=== PATIENT | male | born 1945 | race Caucasian/White ===

== ENCOUNTER 2016-07-02 08:19 | Outpatient (CLI) | payer MEDICARE ==
[2016-07-01 17:40] LABS: HEMATOCRIT 26.8 % (37.9-51.0); HGB HCT DIFFERENCE -2.8; MEAN CORPUSCULAR HEMOGLOBIN 22.3 pg (27.0-33.4); MEAN CORPUSCULAR HGB CONC 29.9 g/dL (32.0-36.0); MEAN CORPUSCULAR VOLUME 74 fl (80-97); RED CELL DISTRIBUTION WIDTH 21.8 % (11.5-14.0); WHITE BLOOD COUNT 7.9 10^3/uL (4.0-10.5)
[2016-07-02] MEDS ORDERED: ACETAMINOPHEN 325 MG TABLET PO PRN (08:45)
[2016-07-02] MEDS ORDERED: FUROSEMIDE INJ/PF 20 MG/2 ML SDV IV PRN (08:46)
[2016-07-02] MEDS ORDERED: DIPHENHYDRAMINE HCL 25 MG CAPSULE PO PRN (08:46)
[2016-07-02] MEDS ORDERED: NORMAL SALINE 250 ML IV PRN (08:48)
[2016-07-02 13:28] VITALS: BP 95/53
== END 2016-07-02 13:32 | disposition home or self-care (01) ==
LOC: II 08:19 → 5TH 08:19 → II 13:32
PROVIDERS: ATTEND Internal Medicine
PROC: 30233N1 Transfusion of Nonautologous Red Blood Cells into Peripheral Vein, Percutaneous Approach (ICD-10-PCS; principal; 2016-07-02)
DX: D50.8 Other iron deficiency anemias (principal)
CPT/HCPCS: 86900; 86901; 36415; 36430; 86850; 86920; P9016; A9270 ×2

== ENCOUNTER 2016-11-10 23:29 | Emergency (ER) | payer MEDICARE ==
[2016-11-10] MEDS ORDERED: ASPIRIN 81 MG TABLET, CHEWABLE PO ONE (23:35)
[2016-11-10] MEDS ORDERED: ALBUTEROL SULFATE 0.083% NEB 2.5 MG/3 ML AMPUL NEB ONE ×2 (23:42→23:45)
--- NOTE | 2016-11-10 23:46 | ER Document Report ---
ED General - General Stated Complaint: POST CARDIAC ARREST Time Seen by Provider: 11/10/16 23:41 Cannot obtain history due to: Unstable vital signs Notes: Patient is a 71-year-old male with past medical history of CHF, hyperlipidemia, COPD with 3 L oxygen dependence at baseline, and baseline hypotension over the last several months who presents by EMS with concerns of a possible cardiac arrest. EMS reports that patient apparently appeared to have difficulty breathing, he then became unresponsive. The reports that she felt a pulse the entire time and that patient was breathing. When the fire department arrived they did not feel a pulse but stated that patient was having agonal breathing. This would not be consistent with a true cardiac arrest as patient could not be having spontaneous respirations and he was in complete cardiac arrest. When EMS arrived patient was placed on executive pilot and was noted to be in sinus tachycardia. Patient did spontaneously wake up and began pushing the provider's office him during chest compressions. Patient was since noted to be completely alert and oriented and be denying any complaints and mild chest soreness from chest compressions. Patient himself states that he recalls feeling short of breath prior to the episode. He is otherwise vague and uncertain about the details of today's events. Family denies any history of similar symptoms in the past. At the time of my assessment patient denies any ongoing symptoms beyond a mild shortness of breath. TRAVEL OUTSIDE OF THE [place] IN LAST 30 DAYS: No - Related Data Allergies/Adverse Reactions: No Known Allergies Allergy (Verified 11/11/16 02:17) Past Medical History - General Information source: Patient, Emergency Med Personnel - Social History Smoking Status: Former Smoker Frequency of alcohol use: None - Former heavy user Drug Abuse: None Lives with: Spouse/Significant other Family History: Reviewed & Not Pertinent - Past Medical History Cardiac Medical History: Reports: Hx Congestive Heart Failure, Hx Hypertension - Immunizations Hx Diphtheria, Pertussis, Tetanus Vaccination: Yes Review of Systems - Review of Systems Notes: Constitutional: Negative for fever. HENT: Negative for sore throat. Eyes: Negative for visual changes. Cardiovascular: Negative for chest pain. Respiratory: Positive for shortness of breath. Gastrointestinal: Negative for abdominal pain, vomiting or diarrhea. Genitourinary: Negative for dysuria. Musculoskeletal: Negative for back pain. Skin: Negative for rash. Neurological: Negative for headaches, weakness or numbness. 10 point ROS negative except as marked above and in HPI. Physical Exam - Vital signs Vitals: Resp Pulse Ox 26 H 99 11/10/16 23:34 11/10/16 23:34 Interpretation: Hypotensive, Tachycardic Notes: PHYSICAL EXAMINATION: GENERAL: Appears mildly uncomfortable, moderate respiratory distress. HEAD: Atraumatic, normocephalic. EYES: Pupils equal round and reactive to light, extraocular movements intact, sclera anicteric, conjunctiva are normal. ENT: nares patent, oropharynx clear without exudates. Dry mucous membranes. NECK: Normal range of motion, supple without lymphadenopathy LUNGS: Mild tachypnea, respiratory rate of 30. Good air movement bilaterally with diffuse expiratory wheezing. HEART: Regular rate and rhythm without murmurs ABDOMEN: Soft, nontender, normoactive bowel sounds. No guarding, no rebound. No masses appreciated. EXTREMITIES: Normal range of motion, no pitting or edema. No cyanosis. NEUROLOGICAL: No focal neurological deficits. Moves all extremities spontaneously and on command. PSYCH: Normal mood, normal affect. SKIN: Warm, Dry, normal turgor, no rashes or lesions noted. Course - Re-evaluation Re-evalutation: Patient presents after a cardiac arrest appears to be secondary to an initial respiratory arrest now awake, alert, GCS 15. Initial EKG without any acute ST changes. No old for comparison. Patient is mildly tachypneic with initial respiratory rate of 28 does have some prolonged expiratory phase and end expiratory wheezing although not a convincing exam to suggest an acute COPD exacerbation was the definitive etiology for his respiratory arrest. Patient notes that the only symptoms he had prior to onset of apparently his cardiac arrest was shortness of breath and feeling like "one of my COPD exacerbations". It is possible that his lung exam is improved at this time secondary to albuterol nebulizers received in the field. Patient has already received steroids. Will proceed with additional continuous albuterol nebulizers at this time, IV magnesium, IV fluids. Will also obtain a CT of the chest to exclude a possible acute pulmonary embolus versus aortic dissection as patient is complaining of some back pain at this time. Critically ill will require frequent reassessments. 11/11/16 00:53 Patient continues to have mild tachypnea, mild hypertension but vitals otherwise within normal limits. Continue speaking, clear sentences no distress. CT of the chest. Troponin is only mildly elevated at 0.058. Mild acute kidney injury is present. CXR is otherwise clear. 11/11/16 02:36 CT scan of the chest does not demonstrate any evidence of an acute pulmonary embolus or aortic dissection. Patient overall continues to look clinically well although remains mildly tachypneic. He is now satting 88% on 4 L by nasal cannula so will be transitioned to BiPAP for ventilatory assistance. Will again start albuterol nebulizers as he is again wheezing more now than he was 1 hour ago. 11/11/16 04:15 Patient's repeat troponin is elevated to 1.02. The exact etiology of this mild troponin elevation is unclear although it could be related to demand mediated ischemia in the setting of his near respiratory arrest versus a possible cardiac event although again be unusual given patient has no chest pain, shortness of breath nausea or vomiting. He also has no ongoing chest discomfort beyond what he describes as soreness from chest compressions. On reassessment at this time patient appears dramatically improved relative to time presentation and on BiPAP. He is breathing calmly even respirations at 20/ min on BiPAP at 98% on 40% FiO2. His blood pressure is also normalized systolics at 112 this time. Given the troponin elevation he has required transfer to [facility]. I discussed this case with Dr. Smith who is in agreement that he can be transferred and is accepted for admission. He is agreeable to not starting antiplatelet therapy or heparin at this time as the clinical history and picture is overall not consistent with ACS. - Vital Signs Vital signs: Temp Pulse Resp BP Pulse Ox 97.5 F 24 H 103/74 98 11/11/16 03:00 11/11/16 03:55 11/11/16 03:55 11/11/16 03:55 - Laboratory Result Diagrams: 11/10/16 23:40 11/10/16 23:40 Laboratory results interpreted by me: 11/10/16 11/10/16 23:40 23:40 WBC 14.1 H MCHC 31.9 L RDW 23.8 H Band Neutrophils % 1 L Monocytes % (Manual) 14 H Abs Neuts (Manual) 9.3 H Abs Monocytes (Manual) 2.0 H Potassium 5.1 H Carbon Dioxide 19 L BUN 40 H Creatinine 1.99 H Est GFR ( Amer) 40 L Est GFR (Non-Af Amer) 33 L Glucose 179 H Direct Bilirubin 0.5 H Alkaline Phosphatase 132 H - Diagnostic Test Radiology reviewed: Image reviewed, Reports reviewed Radiology results interpreted by me: 11/11/16 00:53 Chest x-ray: No acute infiltrate - EKG Interpretation by Me Additional EKG results interpreted by me: 11/11/16 00:[address] elevations or depressions. QTc 523. Rate 95. Critical Care Note - Critical Care Note Total time excluding time spent on procedures (mins): 50 Comments: Critical care time spent obtaining history from patient or surrogate, discussions with consultants, development of treatment plan with patient or surrogate, evaluation of patient's response to treatment, examination of patient , ordering and performing treatments and interventions, ordering and review of laboratory studies, re-evaluation of patient's condition, ordering and review of radiographic studies and review of old charts Discharge - Discharge Clinical Impression: Cardiac arrest, COPD exacerbation, Respiratory arrest, Elevated troponin level Condition: Fair Disposition: [facility]
--- NOTE | 2016-11-10 23:57 | RADIOLOGY REPORT (SQ) ---
EXAM DESCRIPTION: CHEST SINGLE VIEW COMPLETED DATE/TIME: 11/10/2016 11:49 pm REASON FOR STUDY: post arrest COMPARISON: None. EXAM PARAMETERS: NUMBER OF VIEWS: One view. TECHNIQUE: Single frontal radiographic view of the chest acquired. RADIATION DOSE: NA LIMITATIONS: None. FINDINGS: LUNGS AND PLEURA: There is a calcified granuloma in the left upper lobe. Lung busby are otherwise clear. MEDIASTINUM AND HILAR STRUCTURES: No masses. Contour normal. HEART AND VASCULAR STRUCTURES: Heart normal in size. Normal vasculature. BONES: No acute findings. HARDWARE: None in the chest. OTHER: No other significant finding. IMPRESSION: NO ACUTE RADIOGRAPHIC FINDING IN THE CHEST. TECHNICAL DOCUMENTATION: JOB ID: [id number]
[2016-11-10 23:59] LABS: HEMATOCRIT 48.6 % (37.9-51.0); HEMOGLOBIN 15.5 g/dL (13.5-17.0); HGB HCT DIFFERENCE -2.1; MEAN CORPUSCULAR HEMOGLOBIN 29.1 pg (27.0-33.4); MEAN CORPUSCULAR HGB CONC 31.9 g/dL (32.0-36.0); MEAN CORPUSCULAR VOLUME 91 fl (80-97); RED BLOOD COUNT 5.32 10^6/uL (4.35-5.55); RED CELL DISTRIBUTION WIDTH 23.8 % (11.5-14.0); WHITE BLOOD COUNT 14.1 10^3/uL (4.0-10.5)
[2016-11-11 00:02] LABS: PROTHROMBIN TIME 14.8 SEC (11.4-15.4)
[2016-11-11] MEDS: MAGNESIUM SULFATE/D5W 100 ML IV SCH ×2 (00:03→00:19)
[2016-11-11 00:08] LABS: ALANINE AMINOTRANSFERASE 40 U/L (21-72); ALKALINE PHOSPHATASE 132 U/L (38-126); ANION GAP 16 (5-19); ASPARTATE AMINO TRANSFERASE 56 U/L (17-59); BILIRUBIN,DIRECT 0.5 mg/dL (0.0-0.4); BILIRUBIN,TOTAL 0.9 mg/dL (0.2-1.3); BLOOD UREA NITROGEN 40 mg/dL (7-20); CALCIUM 9.4 mg/dL (8.4-10.2); CARBON DIOXIDE 19 mmol/L (22-30); CHLORIDE 105 mmol/L (98-107); CREATINE KINASE 84 U/L (55-170); CREATININE RESULT 1.99 mg/dL (0.52-1.25); GLUCOSE 179 mg/dL (75-110); POTASSIUM 5.1 mmol/L (3.6-5.0); SODIUM 139.5 mmol/L (137-145); TOTAL PROTEIN 7.2 g/dL (6.3-8.2)
[2016-11-11 00:21] LABS: CREATINE KINASE MB 2.68 ng/mL (<4.55)
[2016-11-11 00:28] LABS: TROPONIN I 0.058 ng/mL
[2016-11-11 00:31] LABS: BAND NEUTROPHILS % (MANUAL) 1 % (3-5); BASOPHILS % (MANUAL) 0 % (0-2); EOSINOPHILS % (MANUAL) 3 % (0-6); LYMPHOCYTES % (MANUAL) 17 % (13-45); TOTAL CELLS COUNTED 100
[2016-11-11 00:33] LABS: ANISOCYTOSIS 3+; POIKILOCYTOSIS 3+; POLYCHROMASIA SLIGHT; ROULEAUX 3+; TOXIC GRANULATION 1+
--- NOTE | 2016-11-11 02:11 | RADIOLOGY REPORT (SQ) ---
EXAM DESCRIPTION: CTA CHEST COMPLETED DATE/TIME: 11/11/2016 1:48 am REASON FOR STUDY: eval pe, dissection, post arrest COMPARISON: None. TECHNIQUE: CT scan of the chest performed using helical scanning technique with dynamic intravenous contrast injection. Images reviewed with lung, soft tissue and bone windows. Reconstructed coronal and sagittal MPR images reviewed. Additional 3 dimensional post-processing performed to develop Maximal Intensity Projection images (NE P). All images stored on PACS. All CT scanners at this facility use dose modulation, iterative reconstruction, and/or weight based d osing when appropriate to reduce radiation dose to as low as reasonably achievable (ALARA). [facility]: Dose Right [facility]: CareDose [facility]: Dose Right [facility]: Teradose 4D [facility]: Alliance Card CONTRAST TYPE AND DOSE: 98 mL Isovue 300- low osmolar. RENAL FUNCTION: Creatinine 1.99 RADIATION DOSE: 45.52 mGy. LIMITATIONS: None. FINDINGS: LUNGS AND PLEURA: 1.1 cm left calcifiedm granuloma. Moderate paraseptal emphysema. Small -moderate intraparenchymal emphysematous cysts. [id number] interstitial lung markings. Minim al dependent atelectasis bilaterally. AORTA AND GREAT VESSELS: No aneurysm or dissection. HEART: No pericardial effusion. Coronary arterial calcification. Dilated right ventricle, moderate- severe estimated on nongated exam. PULMONARY ARTERIES: No emboli visualized in the main pulmonary arteries or the segmental branches. HILAR AND MEDIASTINAL STRUCTURES: Mild nonspecific mediastinal lymphadenopathy includes a 2.2 cm lymp h node of the aortopulmonary notch. HARDWARE: None in the chest. UPPER ABDOMEN: Cholelithiasis. Punctate calcification of the right adrenal gland. The Limited exam. THYROID AND OTHER SOFT TISSUES: No masses. No adenopathy. BONES: Moderate disc desiccation. 3D MIPS: Confirm above findings. OTHER: No other significant finding. IMPRESSION: 1. Moderate-severe dilation of the right cardiac ventricle. Coronary arterial calcific ation. 2. No pulmonary emboli. 3. Mild nonspecific mediastinal lymphadenopathy. Cholelithiasis. TECHNICAL DOCUMENTATION: JOB ID: [id number] Quality ID # [id number]: Final reports with documentation of one or more dose reduction techniques (e.g., Au tomated exposure control, adjustment of the mA and/or kV according to patient size, use of iterative reconstruction technique) 2010 [employer]- All Rights Reserved
[2016-11-11] MEDS ORDERED: LOPERAMIDE HCL 2 MG CAPSULE PO ONE (02:31)
[2016-11-11] MEDS ORDERED: ALBUTEROL SULFATE 0.083% NEB 2.5 MG/3 ML AMPUL NEB ONE (02:35)
[2016-11-11 04:58] LABS: VENOUS BLOOD BASE EXCESS -6.1 mmol/L; VENOUS BLOOD HCO3 19.7 mmol/L (20-32); VENOUS BLOOD PCO2 39.9 mmHg (35-63); VENOUS BLOOD PH 7.31 (7.30-7.42)
--- NOTE | 2016-11-11 08:02 | ER Document Report ---
Doctor's Note Notes: 11/11/16 08:01 Transport has arrived to take the patient. Blood pressure remains in the 120s, pulse 97, pulse ox 97%. Patient states he feels well. He continues on BiPAP.
[2016-11-11 08:04] VITALS: BP 109/76
--- NOTE | 2016-11-11 09:12 | EKG REPORT ---
SEVERITY:- ABNORMAL ECG - SINUS RHYTHM PROBABLE LEFT ATRIAL ABNORMALITY NONSPECIFIC INTRAVENTRICULAR CONDUCTION DELAY : Confirmed by: Laney Rasmussen MD 11-Nov-2016 09:11:59
== END 2016-11-11 08:14 | disposition short-term general hospital (02) ==
LOC: ER 23:29
DX: I46.9 Cardiac arrest, cause unspecified (principal); J44.1 Chronic obstructive pulmonary disease with (acute) exacerbation; R09.2 Respiratory arrest; I50.9 Heart failure, unspecified; E78.5 Hyperlipidemia, unspecified; Z99.81 Dependence on supplemental oxygen; Z87.891 Personal history of nicotine dependence
CPT/HCPCS: 93005; 94640 ×2; 99291; 96365; 36415; 82553; 82550; 85025; 85610; 80053; 84484; 82803; 71010; 71275; 93010; 94660; A9270 ×3; J3475

== ENCOUNTER 2019-05-24 11:38 | Day surgery (SDC) | payer MEDICARE ==
[2019-05-24 13:04] LABS: INTERNATIONAL RATION (INR) 1.31; PROTHROMBIN TIME 16.4 SEC (11.4-15.4)
[2019-05-24 13:05] LABS: PARTIAL THROMBOPLASTIN TIME 31.9 SEC (23.5-35.8)
[2019-05-24 13:06] LABS: HEMATOCRIT 43.9 % (37.9-51.0); HEMOGLOBIN 14.9 g/dL (13.5-17.0); MEAN CORPUSCULAR HEMOGLOBIN 33.1 pg (27.0-33.4); MEAN CORPUSCULAR HGB CONC 33.9 g/dL (32.0-36.0); MEAN CORPUSCULAR VOLUME 98 fl (80-97); RED BLOOD COUNT 4.49 10^6/uL (4.35-5.55); RED CELL DISTRIBUTION WIDTH 14.9 % (11.5-14.0); WHITE BLOOD COUNT 5.6 10^3/uL (4.0-10.5)
[2019-05-24 13:14] LABS: BLOOD UREA NITROGEN 24 mg/dL (7-20)
[2019-05-24 13:38] LABS: PLATELET COUNT 91 10^3/uL (150-450)
[2019-05-24 15:28] LABS: FLUID APPEARANCE OPAQUE; FLUID COLOR PINK; FLUID SOURCE ASCITES; FLUID TYPE PERITONEAL; FLUID VISCOSITY LIQUID
--- NOTE | 2019-05-24 15:58 | RADIOLOGY REPORT (SQ) ---
EXAM DESCRIPTION: U/S ABD PARACENTESIS COMPLETED DATE/TIME: 05/24/2019 3:13 pm REASON FOR STUDY: ASCITES COMPARISON None. LIMITATIONS: None. PROCEDURE: After obtaining informed consent, the patient was brought to the ultrasound suite. The p rocedure was performed with the patient on a gurney. Ultrasound was used to identify a prominent poc ket of ascites in the LLQ. An appropriate access site was selected. The patient was prepped and rhett ped in usual sterile fashion. The access site was anesthetized with 10 mL 1% lidocaine. A Safe-T-C entesis needle was advanced into the fluid. After aspiration of fluid the needle, the catheter was a dvanced off the needle into the fluid. A total of 2,100 mL of cloudy pink fluid was removed. The pat ient tolerated the procedure well left the department in satisfactory condition. Samples were sent t o the lab for analysis. IMPRESSION: Successful ultrasound-guided paracentesis COMMENT: Patient medication list reviewed: Yes- Quality ID# [id number]:Eligible professional attests to doc umenting in the medical record they obtained, updated, or reviewed the patient's current medications. TECHNICAL DOCUMENTATION: JOB ID: [id number] [employer]- All Rights Reserved Reading location - IP/workstation name: [email or web address] [id number]
[2019-05-24 16:32] VITALS: BP 114/68
[2019-05-25 13:11] LABS: ALBUMIN BODY FLUID 1.7 g/dL (Not Estab.); TOTAL PROTEIN BODY FLUID 3.1 g/dL (.)
== END 2019-05-24 16:40 | disposition home or self-care (01) ==
LOC: RAD 11:38
PROVIDERS: ATTEND Internal Medicine Gastroenterology
DX: K70.31 Alcoholic cirrhosis of liver with ascites (principal); E78.5 Hyperlipidemia, unspecified; E11.9 Type 2 diabetes mellitus without complications; I11.0 Hypertensive heart disease with heart failure; I50.9 Heart failure, unspecified; I42.9 Cardiomyopathy, unspecified; I48.0 Paroxysmal atrial fibrillation; I25.2 Old myocardial infarction; I25.10 Atherosclerotic heart disease of native coronary artery without angina pectoris; E78.00 Pure hypercholesterolemia, unspecified; J43.9 Emphysema, unspecified
CPT/HCPCS: 36415; 49083; 82042; 82565; 82962; 84157; 84520; 85027; 85610; 85730; 87070; 87075; 87205; 89050

== ENCOUNTER 2019-11-15 11:27 | Day surgery (SDC) | payer MEDICARE ==
[2019-11-15 12:48] LABS: HEMATOCRIT 47.1 % (37.9-51.0); HEMOGLOBIN 15.8 g/dL (13.5-17.0); MEAN CORPUSCULAR HEMOGLOBIN 33.9 pg (27.0-33.4); MEAN CORPUSCULAR HGB CONC 33.6 g/dL (32.0-36.0); MEAN CORPUSCULAR VOLUME 101 fl (80-97); RED BLOOD COUNT 4.66 10^6/uL (4.35-5.55); RED CELL DISTRIBUTION WIDTH 15.1 % (11.5-14.0); WHITE BLOOD COUNT 6.4 10^3/uL (4.0-10.5)
[2019-11-15 12:52] LABS: PROTHROMBIN TIME 16.3 SEC (11.4-15.4)
[2019-11-15 12:53] LABS: PARTIAL THROMBOPLASTIN TIME 32.1 SEC (23.5-35.8)
[2019-11-15 13:06] LABS: BLOOD UREA NITROGEN 28 mg/dL (7-20)
[2019-11-15 13:26] LABS: PLATELET COUNT 93 10^3/uL (150-450)
--- NOTE | 2019-11-15 15:53 | RADIOLOGY REPORT (SQ) ---
EXAM DESCRIPTION: U/S ABD PARACENTESIS IMAGES COMPLETED DATE/TIME: 11/15/2019 3:11 pm REASON FOR STUDY: UNSPECIFIED CIRRHOSIS OF LIVER COMPARISON None. LIMITATIONS: None. PROCEDURE: The procedure, risks, benefits, and alternatives were discussed with the patient and the patient's family who then gave written consent. The right lower quadrant was then marked utilizing s onographic guidance and a time-out was performed to document correct marking verification. The area around the selected percutaneous access site was then prepped and draped with 2% chlorhexidi ne utilizing standard sterile technique. After that, the selected access site was infiltrated with 5 ml of 1% lidocaine. A 6 Belgian Cxqp-P-Hayiiufw catheter was then introduced into the fluid-filled p eritoneal cavity and the fluid was aspirated. After the fluid was aspirated, the catheter was removed and the entry site was covered with a sterile bandage. No immediate complications were noted. Volume of Fluid: 4750 mL. Quality of the Fluid: Blood-tinged. Was the fluid collected for analysis? No. Images acquired during the procedure were submitted to PACS. The patient tolerated the procedure with local anesthesia. At the end of the procedure the patient's condition was unchanged from the preprocedural baseline. Documentation of [id number] time the proceduralist spent monitoring the patient: 15 minutes. IMPRESSION: Successful ultrasound-guided paracentesis. COMMENT: Patient medication list reviewed: Yes- Quality ID# [id number]:Eligible professional attests to doc umenting in the medical record they obtained, updated, or reviewed the patient's current medications. TECHNICAL DOCUMENTATION: JOB ID: [id number] 2010 [employer]- All Rights Reserved Reading location - IP/workstation name: [email or web address]
[2019-11-15 16:05] LABS: FLUID SOURCE ASCITES; FLUID TYPE PERITONEAL
[2019-11-15 16:06] LABS: FLUID APPEARANCE CLOUDY; FLUID COLOR ORANGE; FLUID VISCOSITY LIQUID
[2019-11-15 16:10] VITALS: BP 121/76
== END 2019-11-15 16:00 | disposition home or self-care (01) ==
LOC: RAD 11:27
PROVIDERS: ATTEND Internal Medicine Gastroenterology
DX: K74.60 Unspecified cirrhosis of liver (principal); Z79.01 Long term (current) use of anticoagulants; Z79.899 Other long term (current) drug therapy; Z79.84 Long term (current) use of oral hypoglycemic drugs; J43.9 Emphysema, unspecified; E78.5 Hyperlipidemia, unspecified; E11.9 Type 2 diabetes mellitus without complications; I11.0 Hypertensive heart disease with heart failure; I50.40 Unspecified combined systolic (congestive) and diastolic (congestive) heart failure; I27.20 Pulmonary hypertension, unspecified; I25.2 Old myocardial infarction; I25.10 Atherosclerotic heart disease of native coronary artery without angina pectoris; I48.91 Unspecified atrial fibrillation
CPT/HCPCS: 36415; 49083; 82565; 82962; 84520; 85027; 85610; 85730; 89050